=== PATIENT | male | born 1985 | race Caucasian/White ===

== ENCOUNTER 2023-11-27 12:01 | Emergency (ER) | payer SELFPAY ==
[~2023-11-27] VITALS: Ht 160 cm; Wt 70.0 kg
[2023-11-27 12:24] VITALS: BP 129/76; PULSE 82; RESP 20; TEMP 98.2; O2SAT 98
[2023-11-27] MEDS: BLOOD SUGAR DIAGNOSTIC STRIP TEST NR (12:30)
[2023-11-27] MEDS: HALOPERIDOL LACTATE 5MG/ML VIAL IM NR (12:51)
== END 2023-11-27 17:03 | disposition home or self-care (01) ==
LOC: ER 12:01
DX: F10.129 Alcohol abuse with intoxication, unspecified (principal); R51.9 Headache, unspecified; Y90.8 Blood alcohol level of 240 mg/100 ml or more
CPT/HCPCS: 99285; 70450; 82962; 72125; 96372; J1630

== ENCOUNTER 2024-06-16 12:32 | Emergency (ER) | payer SELFPAY ==
[~2024-06-16] VITALS: Ht 149.9 cm; Wt 64.0 kg
[2024-06-16 12:36] VITALS: BP 138/82; PULSE 98; RESP 18; TEMP 98.8; O2SAT 100
== END 2024-06-16 14:10 | disposition home or self-care (01) ==
LOC: ER 12:32
DX: S01.01XD Laceration without foreign body of scalp, subsequent encounter (principal); K74.60 Unspecified cirrhosis of liver; X58.XXXD Exposure to other specified factors, subsequent encounter
CPT/HCPCS: 99283